=== PATIENT | male | born 1960 | race Caucasian/White ===

== ENCOUNTER → 2016-12-02 | Outpatient (CLI) | payer OTHER ==
[~2016-12-02] MED LIST: DELTASONE1 MG PO; GEMFIBROZIL PO; HYDR25T PO; LEVAQUIN250 M1 PO; NKHM; TOBRADEX 0.1%-0.5 ML OPH
[2016-12-02 11:30] LABS: BASO % 0.4 % (0.0-1.0); EOS # 0.7 10*3/uL (0.0-0.4); EOS % 9.1 % (1.0-4.0); HEMOGLOBIN 15.3 g/dl (14.0-18.0); LYMPH # 2.5 10*3/uL (1.3-4.4); LYMPH % 32.9 % (27.0-41.0); MEAN CELL VOLUME 85.5 fl (80.0-94.0); MEAN CORPUSCULAR HGB 28.4 pg (27.0-31.0); MEAN CORPUSCULAR HGB CONC 33.3 g/dl (33.0-37.0); MEAN PLATELET VOLUME 10.1 fl (9.6-12.3); MONO # 0.8 10*3/uL (0.1-1.0); MONO % 10.5 % (3.0-9.0); NEUT # 3.6 10*3/uL (2.3-7.9); NEUT % 46.7 % (47.0-73.0); PLATELET COUNT AUTOMATED 239 10*3/uL (130-400); RED BLOOD COUNT 5.38 10*6/uL (4.50-5.90); RED CELL DISTRI WIDTH 13.5 % (0-14.5); WHITE BLOOD COUNT 7.7 10*3/uL (4.8-10.8)
[2016-12-02 11:59] LABS: ALBUMIN 3.7 gm/dl (3.1-4.5); ALKALINE PHOSPHATASE 51 U/L (45-117); BILIRUBIN, TOTAL 0.8 mg/dl (0.2-1.0); BUN 16 mg/dl (7-24); CARBON DIOXIDE 27 mmol/L (21-32); CHLORIDE 104 mmol/L (98-107); CHOLESTEROL 168 mg/dL (<200); EST GLOM FILT AFRICAN AMERICAN > 60 ml/min; GLUCOSE 89 mg/dL (65-99); HDL CHOLESTEROL 40 mg/dl (40-60); LDL CHOLESTEROL 99 mg/dL (9-159); POTASSIUM 4.1 mmol/L (3.5-5.1); SGOT/AST 23 IU/L (3-35); SGPT/ALT 33 U/L (12-78); SODIUM 140 mmol/L (136-145); TOTAL PROTEIN 7.9 gm/dL (6.4-8.2); TRIGLYCERIDES 144 mg/dl (<150); VLDL CHOLESTEROL 29 mg/dL (6-40)
[2016-12-03 09:09] LABS: PROSTATE SPECIFIC AG FREE 0.43 ng/mL; PSA % FREE 18.7 % (.)
== END | disposition home or self-care (01) ==
LOC: LAB 10:49
PROVIDERS: Internal Medicine
DX: I10 Essential (primary) hypertension (principal); E78.2 Mixed hyperlipidemia; N40.0 Benign prostatic hyperplasia without lower urinary tract symptoms

== ENCOUNTER 2017-03-05 12:11 | Emergency (ER) | payer OTHER ==
[~2017-03-05] VITALS: Ht 190.5 cm; Wt 121.6 kg
[2017-03-05] MEDS ORDERED: CYCLOBENZAPRINE5 M3 PO (14:32)
== END 2017-03-05 14:39 | disposition home or self-care (01) ==
LOC: ED 12:11
DX: S29.019A Strain of muscle and tendon of unspecified wall of thorax, initial encounter (principal); X58.XXXA Exposure to other specified factors, initial encounter; Y93.89 Activity, other specified; Y92.9 Unspecified place or not applicable; Y99.9 Unspecified external cause status

== ENCOUNTER → 2020-08-27 | Outpatient (CLI) | payer BC ==
[~2020-08-27] MED LIST changes: +CYCLOBENZAPRINE5 M3 PO
== END | disposition home or self-care (01) ==
LOC: RAD 12:29
PROVIDERS: ATTEND Family Medicine
DX: M25.512 Pain in left shoulder (principal)